=== PATIENT | female | born 1935 | race Caucasian/White ===

== ENCOUNTER 2016-07-02 16:23 | Inpatient (IN) | payer OTHER ==
[2016-07-02] MEDS ORDERED: PHENERGAN PO PRN (17:05)
[2016-07-02] MEDS ORDERED: SALINE LOCK IV FLUID XX ONE (17:06)
[2016-07-02] MEDS ORDERED: LEVAQUIN 500 MG/D5W 100 ML IV SCH (17:15)
[2016-07-02 18:09] LABS: MANUAL DIFF NEEDED? NO
[2016-07-02 18:15] LABS: BASO% 0.2 % (0.0-0.8); EOS% 2.3 % (0.0-10.0); HEMATOCRIT 40.8 % (37.0-47.0); HEMOGLOBIN 13.1 g/dL (12.0-16.0); IMM GRAN# 0.04 X1000 (0.0-0.04); IMM GRAN% 0.5 % (0.0-0.5); LYMPH# 2.56 X1000 (1.2-3.4); LYMPH% 29.6 % (20.5-51.1); MCH 28.7 PG (27-31); MCHC 32.1 g/dL (33-37); MCV 89.5 FL (81-99); MONO# 1.03 X1000 (0.11-0.59); MONO% 11.9 % (1.7-9.3); MPV 10.1 FL (7.4-10.4); NEUT% 55.5 % (42.2-75.2); PLT 245 X1000 (130-400); RBC 4.56 XMIL (4.2-5.4)
[2016-07-02 18:38] LABS: AGAP 13; ALBUMIN 3.9 g/dL (3.5-5.0); ALKALINE PHOSPHATASE 85 U/L (32-104); BUN 17 mg/dL (8-22); CALCIUM 9.4 mg/dL (8.8-10.2); CHLORIDE 96 mmol/L (98-107); COSMO 285; GOT 12 U/L (10-30); GPT 11 U/L (10-36); SODIUM 142 mmol/L (136-145); TCO2 33 mmol/L (25-35); TOTAL BILIRUBIN 0.28 mg/dL (0.20-1.00); TOTAL PROTEIN 7.2 g/dL (6.3-8.3)
[2016-07-02] MEDS ORDERED: NORCO-10 PO PRN (18:56)
[2016-07-02] MEDS ORDERED: TYLENOL PO PRN (18:56)
[2016-07-02] MEDS ORDERED: CATAPRES PO PRN (18:56)
--- NOTE | 2016-07-02 20:35 | HISTORY AND PHYSICAL ---
HISTORY OF PRESENT ILLNESS: Ms. Mattson is a 80-year-old white female who was admitted with severe shortness of breath with acute exacerbation of COPD and possible pneumonia. Ms. Mattson has severe COPD. She was treated as an outpatient with antibiotics and respiratory therapy without much help. Hence she is admitted to the hospital. She has a known case of COPD for a long time and has been a chronic heavy smoker. She also has severe degenerative disk disease in the lumbar spine. PAST SURGICAL HISTORY: Reveals a history of 2 thyroid surgeries, hysterectomy and 1 back surgery performed on her. As mentioned, she is a heavy smoker and does not drink. ALLERGIES: Methadone, morphine and penicillin. MEDICATIONS: Home medicines involve polyethylene glycol, omeprazole 20 mg daily. She uses a nicotine patch 21 mg daily, metronidazole or Flagyl 500 mg t.i.d., metoprolol for hypertension 100 mg on a daily basis, meloxicam 15 mg daily, was taking levofloxacin p.o. daily without much help. DuoNeb inhaler 3-4 times a day, hydrocodone [place] 10 q.i.d. p.r.n. , Robitussin 100 DM, 10 mg of Lexapro daily, clonidine 0.1 mg t.i.d., amlodipine 10 mg daily, alprazolam 0.5 mg 4 times a day. Tylenol 325 mg q.8 hours. REVIEW OF SYSTEMS: Other than shortness of breath, cough with expectoration and severe back pain it is noncontributory at the present time. PHYSICAL EXAMINATION: VITAL SIGNS: Temperature normal, pulse 88 per minute, slightly irregular, respiratory rate 20 per minute, blood pressure 150/90. HEENT: Head normocephalic. Pupils PERRLA. Fundus examination normal. ENT examination unremarkable. NECK: Supple. JVP normal. There is no evidence of lymphadenopathy, thyroid enlargement. EXTREMITIES: Pedal edema, calf tenderness, anemia, cyanosis or clubbing. Pedal pulses well felt. BREAST EXAMINATION: Not done. CHEST: Normal. LUNGS: Reveal bilateral expiratory wheezing with occasional basal rales. PMI in the normal position. HEART: Sounds normal. No murmur, gallop or rub noted. ABDOMEN: Nondistended. Hernial orifices normal. No guarding, rigidity, free fluid, masses, or organomegaly. Bowel sounds normal. There is some tenderness in the lower abdomen. FINANCIAL AUDITOR: Higher functions normal. Cranial nerves normal. Motor and sensory system examination unremarkable. Deep tendon reflexes are sluggish. Plantars downgoing. Skull and spine examination reveals painful movements of the lumbosacral spine. SLR positive at about 30 degrees. There are no cerebellar signs or signs of meningeal irritation. LOCOMOTOR EXAMINATION: Unremarkable. SKIN EXAMINATION: Unremarkable. CLINICAL IMPRESSION: Acute exacerbation of chronic obstructive pulmonary disease. PLAN: Start IV Solu-Medrol and IV Rocephin 1 g IV daily.
[2016-07-02] MEDS ORDERED: XANAX PO SCH (21:00)
[2016-07-02] MEDS: NORCO-10 PO PRN (21:11)
[2016-07-02] MEDS: ROBAXIN PO SCH (21:23)
[2016-07-02] MEDS: NICODERM PATCH TD SCH (21:23)
[2016-07-02] MEDS: MUCINEX DM PO SCH (21:24)
[2016-07-02] MEDS: LEVAQUIN PO SCH (21:24)
[2016-07-02] MEDS: XANAX PO PRN (21:26)
[2016-07-02] MEDS: DUONEB (A & A) INH SCH (22:52)
[2016-07-03] MEDS: SOLU-MEDROL IV SCH ×5 (01:18→17:28)
[2016-07-03] MEDS: NORCO-10 PO PRN ×3 (01:24→20:57)
[2016-07-03] MEDS: DUONEB (A & A) INH SCH ×4 (03:19→20:20)
[2016-07-03] MEDS: PRILOSEC PO SCH ×2 (04:22→06:14)
[2016-07-03] MEDS: XANAX PO PRN ×2 (04:22→10:04)
[2016-07-03] MEDS: ROCEPHIN 1 GM/NS 50 ML IV SCH (05:02)
--- NOTE | 2016-07-03 05:16 | EKG Report ---
Test Performed on : 07/02/2016 6:09:33 PM Test Reason : PNA Blood Pressure : / mmHG Vent. Rate : 065 BPM Atrial Rate : 065 BPM P-R Int : 156 ms QRS Dur : 146 ms QT Int : 454 ms P-R-T Axes : 071 084 047 degrees QTc Int : 472 ms Normal sinus rhythm. Right bundle branch block Abnormal ECG When compared with ECG of 16-FEB-2016 13:59, premature supraventricular complexes. are no longer present Confirmed by Da ARGUETA, Bennett Eller ([id number]) on 07/03/2016 9:31:19 AM
--- NOTE | 2016-07-03 07:35 | Diag Imaging Result Document ---
PROCEDURE NAME: CHEST-2 VIEWS - 07/02/2016 CHEST X-RAY, 2 VIEWS: COMPARISON: 03/27/2016. FINDINGS: Stable COPD. There is improvement in the linear atelectasis at the right lung base. No new or focal infiltrates. Heart size remains slightly enlarged. Stable small compression fracture in the midthoracic spine. IMPRESSION: COPD. Mild cardiomegaly. Improvement in right basilar atelectasis.
--- NOTE | 2016-07-03 09:06 | PROGRESS NOTE ---
DATE: 07/03/2016 Ms. Mattson is complaining about severe headache and generalized body aches. She is still short of breath. She continues to have some wheezing. She is kind of indicating about not being able to handle herself at home and may think about going to halfway. We will continue with the current management at the present time.
[2016-07-03] MEDS: MUCINEX DM PO SCH ×2 (09:39→20:51)
[2016-07-03] MEDS: LEXAPRO PO SCH (09:39)
[2016-07-03] MEDS: NORVASC PO SCH (09:39)
[2016-07-03] MEDS: LOPRESSOR PO SCH (09:39)
[2016-07-03] MEDS: MOBIC PO SCH (09:39)
[2016-07-03] MEDS: ROBAXIN PO SCH ×2 (09:40→20:49)
[2016-07-03] MEDS: MIRALAX PO SCH (09:56)
[2016-07-03] MEDS: ROBITUSSIN-DM PO SCH ×5 (10:02→20:48)
[2016-07-03] MEDS: XANAX PO SCH ×5 (10:07→20:51)
[2016-07-03] MEDS: NICODERM PATCH TD SCH (20:49)
[2016-07-03] MEDS: LEVAQUIN PO SCH (20:51)
[2016-07-03] MEDS ORDERED: EYE-STREAM SOLUTION BOTH EYES ONE (23:13)
[2016-07-04] MEDS: SOLU-MEDROL IV SCH ×5 (00:20→22:09)
[2016-07-04] MEDS: ROBITUSSIN-DM PO SCH ×7 (00:46→22:08)
[2016-07-04] MEDS: DUONEB (A & A) INH SCH ×3 (03:33→09:48)
[2016-07-04] MEDS: ROCEPHIN 1 GM/NS 50 ML IV SCH (03:46)
[2016-07-04] MEDS: NORCO-10 PO PRN ×3 (03:51→22:16)
[2016-07-04] MEDS: PRILOSEC PO SCH ×2 (05:31→06:06)
[2016-07-04] MEDS: MIRALAX PO SCH (08:40)
[2016-07-04] MEDS: MUCINEX DM PO SCH ×2 (08:40→22:10)
[2016-07-04] MEDS: LEXAPRO PO SCH (08:41)
[2016-07-04] MEDS: ROBAXIN PO SCH ×2 (08:41→22:10)
[2016-07-04] MEDS: NORVASC PO SCH (08:41)
[2016-07-04] MEDS: XANAX PO SCH ×4 (08:41→22:11)
[2016-07-04] MEDS: LOPRESSOR PO SCH (08:41)
[2016-07-04] MEDS: MOBIC PO SCH (08:42)
--- NOTE | 2016-07-04 11:50 | PROGRESS NOTE ---
DATE: 07/04/2016 Ms. Mattson is recovering well from her bronchitis. She has less amount of wheezing. We will cut down on the Solu-Medrol today. She indicates to go to rehabilitation or correction. We will discharge her to [facility] when the arrangements are made. Until then, we will continue to treat her. Will reduce the Solu-Medrol today.
[2016-07-04] MEDS: TEARISOL OPH SOLUTION BOTH EYES PRN (17:30)
[2016-07-04] MEDS: LEVAQUIN PO SCH (22:11)
[2016-07-04] MEDS: NICODERM PATCH TD SCH (22:18)
[2016-07-05] MEDS: ROBITUSSIN-DM PO SCH ×6 (01:59→21:20)
[2016-07-05] MEDS: SOLU-MEDROL IV SCH ×3 (04:55→21:20)
[2016-07-05] MEDS: ROCEPHIN 1 GM/NS 50 ML IV SCH (04:56)
[2016-07-05] MEDS: PRILOSEC PO SCH (06:41)
[2016-07-05] MEDS: NORCO-10 PO PRN ×4 (06:41→21:20)
[2016-07-05] MEDS: DUONEB (A & A) INH PRN ×2 (09:13→19:29)
[2016-07-05] MEDS: LEXAPRO PO SCH (09:45)
[2016-07-05] MEDS: XANAX PO SCH ×4 (09:46→21:20)
[2016-07-05] MEDS: ROBAXIN PO SCH ×2 (09:46→21:20)
[2016-07-05] MEDS: LOPRESSOR PO SCH (09:46)
[2016-07-05] MEDS: MIRALAX PO SCH (09:47)
[2016-07-05] MEDS: NORVASC PO SCH (09:47)
[2016-07-05] MEDS: MOBIC PO SCH (09:47)
[2016-07-05] MEDS: MUCINEX DM PO SCH ×2 (09:47→21:20)
[2016-07-05] MEDS: TEARISOL OPH SOLUTION BOTH EYES PRN (10:12)
--- NOTE | 2016-07-05 12:13 | PROGRESS NOTE ---
DATE: 07/05/2016 80-year-old white female patient, known case of COPD, admitted with chest congestion, cough, increasing shortness of breath not responding to outpatient treatment. Admission history and physical noted. The patient still has some cough and chest congestion. Complaining of arthritic pain in the joint though pain medication is helping. Complaining of swelling of the feet and legs. No orthopnea or PND. No typical chest pain or palpitations. Denied any nausea or vomiting. PAST MEDICAL HISTORY: Significant for COPD, osteoarthritis, hypertension, anxiety and depression, gastritis and reflux disease, chronic constipation. OBJECTIVE: Her vital signs noted. Blood pressure minimally elevated.Neck: Supple. No JVD. Lungs: Bilateral good air entry present. Bilateral expiratory wheezing. CVS: S1 and S2 heard. Abdomen: Soft, globular. Bowel sounds present. Extremities: No cyanosis, clubbing. Minimal swelling of the feet. 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 Patient does have crepitation of both the knee joints. LAB DATA: Done on admission reviewed. CONSIDERATION: 1. Acute exacerbation of COPD, most likely due to bronchitis. Admission chest x-ray was negative for pneumonia. It did reveal mild cardiomegaly. 2. Other problems include hypertension, bilateral feet swelling could be due to COPD, medication use. 3. Osteoarthritis. Patient's labs and medication noted. We will continue current treatment and close observation. I am going to repeat blood work tomorrow. The patient is still wheezing. I am going to wait to decrease her Solu-Medrol. Overall plan discussed with the patient. Advised her to keep her leg elevated.
[2016-07-05] MEDS: NICODERM PATCH TD SCH (21:20)
[2016-07-05] MEDS: LEVAQUIN PO SCH (21:20)
[2016-07-06] MEDS: ROBITUSSIN-DM PO SCH ×6 (03:16→22:52)
[2016-07-06] MEDS: DUONEB (A & A) INH PRN ×3 (03:28→19:21)
[2016-07-06 05:06] LABS: ALLEN TEST YES; BE 8.2 mmoll (-3.0-3.0); BLOOD TYPE ARTERIAL; DRAW SITE R RADIAL; PO2(98.6) 70 mmHg (60-100); SAMPLE BLOOD; pH(98.6) 7.38 (7.35-7.45)
[2016-07-06 05:13] LABS: MODALITY CANNULA; PCO2(98.6) 60 mmHg (35-45)
[2016-07-06] MEDS: SOLU-MEDROL IV SCH ×2 (05:58→17:05)
[2016-07-06] MEDS: NORCO-10 PO PRN ×4 (05:58→22:50)
[2016-07-06] MEDS: ROCEPHIN 1 GM/NS 50 ML IV SCH (05:59)
[2016-07-06] MEDS: PRILOSEC PO SCH ×2 (05:59)
[2016-07-06] MEDS: XANAX PO SCH ×5 (05:59→22:51)
[2016-07-06 06:30] LABS: MANUAL DIFF NEEDED? NO
[2016-07-06 06:36] LABS: BASO% 0.1 % (0.0-0.8); EOS# 0.06 X1000 (0.0-0.7); EOS% 0.4 % (0.0-10.0); HEMATOCRIT 43.3 % (37.0-47.0); IMM GRAN# 0.13 X1000 (0.0-0.04); IMM GRAN% 0.9 % (0.0-0.5); LYMPH% 6.7 % (20.5-51.1); MCHC 32.3 g/dL (33-37); MCV 89.6 FL (81-99); MONO# 1.05 X1000 (0.11-0.59); MPV 10.9 FL (7.4-10.4); NEUT% 84.9 % (42.2-75.2); PLT 256 X1000 (130-400); RBC 4.83 XMIL (4.2-5.4)
[2016-07-06 07:16] LABS: AGAP 15; ALBUMIN 4.2 g/dL (3.5-5.0); ALKALINE PHOSPHATASE 86 U/L (32-104); BUN 23 mg/dL (8-22); CALCIUM 9.6 mg/dL (8.8-10.2); CHLORIDE 98 mmol/L (98-107); COSMO 289; GOT 12 U/L (10-30); GPT 12 U/L (10-36); POTASSIUM 4.1 mmol/L (3.5-5.1); SODIUM 142 mmol/L (136-145); TCO2 29 mmol/L (25-35); TOTAL PROTEIN 6.9 g/dL (6.3-8.3)
[2016-07-06 07:18] LABS: TOTAL BILIRUBIN 0.14 mg/dL (0.20-1.00)
[2016-07-06] MEDS: ROBAXIN PO SCH ×2 (08:26→22:51)
[2016-07-06] MEDS: MOBIC PO SCH (08:27)
[2016-07-06] MEDS: NORVASC PO SCH (08:27)
[2016-07-06] MEDS: LOPRESSOR PO SCH (08:27)
[2016-07-06] MEDS: MIRALAX PO SCH (08:27)
[2016-07-06] MEDS: MUCINEX DM PO SCH ×2 (08:27→22:52)
[2016-07-06] MEDS: LEXAPRO PO SCH (08:27)
--- NOTE | 2016-07-06 08:39 | Diag Imaging Result Document ---
PROCEDURE NAME: CHEST-2 VIEWS - 07/06/2016 FRONTAL AND LATERAL CHEST, TWO VIEWS: COMPARISON: Compared to 07/02/2016. FINDINGS: The lungs are well expanded except for basilar atelectasis. The heart is not enlarged. The vessels are not distended. No pleural effusions. No consolidation. IMPRESSION: Increased markings in the lung bases believed to be atelectasis.
[2016-07-06] MEDS ORDERED: LASIX IV ONE (09:16)
--- NOTE | 2016-07-06 09:50 | PROGRESS NOTE ---
DATE: 07/06/2016 SUBJECTIVE: Ms. Roth is doing fair. She was complaining of headache and low back pain. Mild cough. No expectoration. No high-grade fever or chills. The patient did have mild nausea. She received Phenergan which did help. Patient admitted with COPD exacerbation. OBJECTIVE: Vital signs: Noted. Neck: Supple. No JVD. Lungs: Bilateral good air entry present. Occasional wheezing. CVS S1 and S2 heard. Abdomen: Soft, globular. Bowel sounds present. Extremities: No cyanosis, clubbing, edema. SPINDLE FRAME CARVER: Alert, awake. Able to move all 4 limbs. LABORATORY: CBC did reveal leukocytosis most likely due to steroid. Blood gas, pH 7.38, pCO2 60, PO2 was 70. Electrolytes were fairly benign. Chest x-ray did reveal atelectasis. No pneumonia. ASSESSMENT: 1. Chronic obstructive pulmonary disease exacerbation. 2. Chronic low back pain. 3. Hypertension. 4. Muscle spasm. PLAN: I am going to decrease her Solu-Medrol. Patient is on pain medication for headache and back pain which will continue. Continue the rest of the treatment and close observation. Overall plan discussed with the patient and she is in agreement.
[2016-07-06] MEDS: LEVAQUIN PO SCH (22:50)
[2016-07-06] MEDS: NICODERM PATCH TD SCH (22:50)
[2016-07-07] MEDS: ROBITUSSIN-DM PO SCH ×6 (01:27→23:46)
[2016-07-07] MEDS: DUONEB (A & A) INH PRN ×4 (03:41→20:07)
[2016-07-07] MEDS: ROCEPHIN 1 GM/NS 50 ML IV SCH (04:45)
[2016-07-07] MEDS: NORCO-10 PO PRN ×2 (04:47→12:34)
[2016-07-07] MEDS: SOLU-MEDROL IV SCH ×4 (04:52→17:06)
--- NOTE | 2016-07-07 09:01 | PROGRESS NOTE ---
DATE: 07/07/2016 Ms. Mattson continues to have some extra wheezing. She had leukocytosis. White count was 14.9. Electrolytes normal. BUN 23. ABGs revealed pH of 7.38, pCO2 of 60 which is slightly elevated. She has some expiratory wheezing. She is not feeling good today. I am going to hold on the transfer to [facility] until tomorrow.
[2016-07-07] MEDS: MIRALAX PO SCH (09:23)
[2016-07-07] MEDS: LOPRESSOR PO SCH (09:24)
[2016-07-07] MEDS: ROBAXIN PO SCH ×2 (09:24→23:46)
[2016-07-07] MEDS: NORVASC PO SCH (09:24)
[2016-07-07] MEDS: XANAX PO SCH ×4 (09:24→23:47)
[2016-07-07] MEDS: LEXAPRO PO SCH (09:25)
[2016-07-07] MEDS: MOBIC PO SCH (09:25)
[2016-07-07] MEDS: MUCINEX DM PO SCH ×2 (09:25→23:47)
[2016-07-07] MEDS: PRILOSEC PO SCH (14:00)
[2016-07-07] MEDS: TEARISOL OPH SOLUTION BOTH EYES PRN (16:52)
[2016-07-07] MEDS: NICODERM PATCH TD SCH (23:47)
[2016-07-07] MEDS: LEVAQUIN PO SCH (23:47)
[2016-07-08] MEDS: NORCO-10 PO PRN ×2 (00:04→06:34)
[2016-07-08] MEDS: ROBITUSSIN-DM PO SCH ×3 (00:08→09:33)
[2016-07-08] MEDS: DUONEB (A & A) INH PRN ×2 (03:13→07:36)
[2016-07-08] MEDS: ROCEPHIN 1 GM/NS 50 ML IV SCH (04:03)
[2016-07-08] MEDS: PRILOSEC PO SCH (06:34)
[2016-07-08] MEDS: SOLU-MEDROL IV SCH (06:34)
[2016-07-08 08:16] VITALS: BP 151/77
--- NOTE | 2016-07-08 09:15 | PROGRESS NOTE ---
DATE: 07/08/2016 Ms. Mattson is feeling better. She had slight headache and the blood pressure is slightly elevated. Physical exam otherwise is unchanged. There is no wheezing now. I personally feel like [facility].
[2016-07-08] MEDS: MUCINEX DM PO SCH (09:27)
[2016-07-08] MEDS: ROBAXIN PO SCH (09:27)
[2016-07-08] MEDS: LEXAPRO PO SCH (09:27)
--- NOTE | 2016-07-08 09:27 | DISCHARGE SUMMARY ---
ADMISSION DATE: 07/02/2016 DISCHARGE DATE: 07/08/2016 IDENTIFICATION: Ms. Mattson is a 80-year-old white female, who was admitted with severe shortness of breath, acute exacerbation of COPD. IMAGING DATA: In the hospital, chest x-ray revealed mild cardiomegaly, COPD, improved right basilar atelectasis. Repeat chest x-ray was done on 07/06, which again revealed increased markings in the lung bases related to be atelectasis. LABORATORY DATA: CBC revealed white count 14.99. ABGs revealed pH 7.38, pCO2 60, PO2 was 70. Electrolytes are normal: BUN was 23, creatinine 0.5. COURSE IN THE HOSPITAL: She was given IV steroids, IV antibiotics, respiratory therapy. She continued to improve. She had 1 relapse about 3 days ago. She is feeling much better. She will be discharged today. She will be given prednisone 10 mg daily for about the next 5 days. She will be continued on her current medications. She is going to [facility].
[2016-07-08] MEDS: XANAX PO SCH (09:28)
[2016-07-08] MEDS: NORVASC PO SCH (09:28)
[2016-07-08] MEDS: LOPRESSOR PO SCH (09:28)
[2016-07-08] MEDS: MOBIC PO SCH (09:28)
[2016-07-08] MEDS: TEARISOL OPH SOLUTION BOTH EYES PRN (09:28)
[2016-07-08] MEDS: MIRALAX PO SCH (09:33)
== END 2016-07-08 12:48 | DRG 192 ==
LOC: 4N 18:39
PROVIDERS: ADMIT Internal Medicine; ATTEND Internal Medicine
DX: J44.1 Chronic obstructive pulmonary disease with (acute) exacerbation (principal); I10 Essential (primary) hypertension; F17.210 Nicotine dependence, cigarettes, uncomplicated; M51.36 Other intervertebral disc degeneration, lumbar region; R51 Headache; M19.90 Unspecified osteoarthritis, unspecified site; F41.9 Anxiety disorder, unspecified; F32.9 Major depressive disorder, single episode, unspecified; K29.70 Gastritis, unspecified, without bleeding; K21.9 Gastro-esophageal reflux disease without esophagitis; K59.09 Other constipation; R60.0 Localized edema; Z79.899 Other long term (current) drug therapy; Z79.1 Long term (current) use of non-steroidal anti-inflammatories (NSAID)
CPT/HCPCS: 71020; 80053; 82805; 83735; 85025; 93005; 93010; 94640; 94761; J0696; J1940; J2920; J2930

== ENCOUNTER 2016-10-23 14:42 | Inpatient (IN) ==
--- NOTE | 2016-10-23 16:11 | Diag Imaging Result Doc PS360 ---
EXAM: CHEST-2 VIEWS HISTORY: BRONCHITIS TECHNIQUE: PA and lateral chest COMMENT: There is COPD. There has been improvement in the atelectasis seen in the lung bases on 07/06/2016. What remains may be fibrotic. IMPRESSION: Improved bibasal or atelectasis. Possible fibrosis. Electronically signed by Remberto Mcintyre 10/23/2016 4:09 PM
[2016-10-23] MEDS: DUONEB (A & A) INH SCH (16:23)
[2016-10-23] MEDS: NORCO-10 PO PRN (17:05)
[2016-10-23] MEDS: SOLU-MEDROL IV SCH ×2 (17:06→23:58)
[2016-10-23] MEDS: ROCEPHIN 1 GM/NS 1 GM/50 ML IVPB IV SCH (17:06)
[2016-10-23 17:28] LABS: MANUAL DIFF NEEDED? NO
[2016-10-23 17:35] LABS: BASO% 0.2 % (0.0-0.8); EOS# 0.18 X1000 (0.0-0.7); EOS% 2.2 % (0.0-10.0); HEMATOCRIT 42.6 % (37.0-47.0); HEMOGLOBIN 13.9 g/dL (12.0-16.0); LYMPH# 3.35 X1000 (1.2-3.4); LYMPH% 40.8 % (20.5-51.1); MCH 28.5 PG (27-31); MCHC 32.6 g/dL (33-37); MCV 87.3 FL (81-99); MONO# 0.99 X1000 (0.11-0.59); MONO% 12.1 % (1.7-9.3); MPV 10.1 FL (7.4-10.4); NEUT% 44.7 % (42.2-75.2); PLT 213 X1000 (130-400); RBC 4.88 XMIL (4.2-5.4)
[2016-10-23 17:53] LABS: AGAP 10; ALBUMIN 4.1 g/dL (3.5-5.0); ALKALINE PHOSPHATASE 74 U/L (32-104); BUN 22 mg/dL (8-22); CALCIUM 9.2 mg/dL (8.8-10.2); CHLORIDE 96 mmol/L (98-107); COSMO 278; GOT 16 U/L (10-30); GPT 12 U/L (10-36); POTASSIUM 4.6 mmol/L (3.5-5.1); SODIUM 137 mmol/L (136-145); TCO2 31 mmol/L (25-35); TOTAL BILIRUBIN 0.34 mg/dL (0.20-1.00)
[2016-10-23] MEDS ORDERED: DUONEB (A & A) INH PRN (18:25)
[2016-10-23] MEDS ORDERED: CLARITIN-D 12 HR PO PRN (18:25)
[2016-10-23] MEDS ORDERED: PHENERGAN PO PRN (18:25)
[2016-10-23] MEDS: TYLENOL PO PRN (19:22)
[2016-10-23] MEDS: XANAX PO SCH (21:09)
[2016-10-23] MEDS: ROBAXIN PO SCH (21:09)
[2016-10-23] MEDS: EFFEXOR XR PO SCH (21:09)
[2016-10-23] MEDS: LOPRESSOR PO SCH (21:10)
[2016-10-23] MEDS: MUCINEX DM PO SCH (21:11)
[2016-10-24] MEDS: PRILOSEC PO SCH ×2 (05:13→09:36)
[2016-10-24] MEDS: NORCO-10 PO PRN ×3 (05:13→15:16)
--- NOTE | 2016-10-24 05:27 | EKG Report ---
Test Performed on : 10/23/2016 5:46:54 PM Test Reason : BRONCHITIS Blood Pressure : / mmHG Vent. Rate : 056 BPM Atrial Rate : 056 BPM P-R Int : 158 ms QRS Dur : 148 ms QT Int : 472 ms P-R-T Axes : 076 086 063 degrees QTc Int : 455 ms Sinus bradycardia. Right bundle branch block Abnormal ECG When compared with ECG of 02-JUL-2016 18:09, No significant change was found Confirmed by Shay ARGUETA, Adrian Ramírez ([id number]) on 10/24/2016 11:17:21 AM
[2016-10-24] MEDS: DUONEB (A & A) INH SCH ×5 (07:58→21:39)
[2016-10-24] MEDS: COMBIVENT RESPIMAT INHALER INH SCH ×4 (07:58→15:43)
[2016-10-24] MEDS: LOPRESSOR PO SCH ×2 (08:29→21:20)
[2016-10-24] MEDS: MUCINEX DM PO SCH ×2 (08:30→21:19)
[2016-10-24] MEDS: MOBIC PO SCH (08:30)
[2016-10-24] MEDS: EFFEXOR XR PO SCH ×2 (08:31→21:19)
[2016-10-24] MEDS: XANAX PO SCH ×4 (08:31→21:19)
[2016-10-24] MEDS: ROBAXIN PO SCH ×2 (08:32→21:19)
[2016-10-24] MEDS: NORVASC PO SCH (08:32)
[2016-10-24] MEDS: SOLU-MEDROL IV SCH ×2 (08:33→21:37)
[2016-10-24] MEDS: MIRALAX PO SCH (08:34)
[2016-10-24] MEDS: NICODERM PATCH TD SCH (08:34)
--- NOTE | 2016-10-24 12:12 | PROGRESS NOTE ---
DATE: 10/24/2016 Ms. Mattson continues to have some expiratory wheezing. She has COPD with exacerbation. Her Solu-Medrol will be decreased today from 80 to 40 mg IV q.8 hours. Overall condition is unchanged. We are going to start physical therapy on her also. cc: Edwin Naranjo MD
[2016-10-24] MEDS: TYLENOL PO PRN (13:24)
--- NOTE | 2016-10-24 14:00 | HISTORY AND PHYSICAL ---
HISTORY OF PRESENT ILLNESS: Ms. Mattson who is a 80-year-old white female, a known case of severe COPD, degenerative disk disease in the lumbar spine is admitted because of failure of outpatient therapy with antibiotics and breathing treatment. She has acute exacerbation of COPD. Ms. Mattson has a known case of COPD, she continues to smoke. She smokes about half pack of cigarettes per day. Sometimes goes to 1 pack. She lives with her daughter at the present time. She had back surgery and a vaginal hysterectomy. Besides this, she had one surgery on thyroid, a cyst was removed from the thyroid. MEDICATIONS: Lexapro 20 mg which is not helping; hence I am changing it to Effexor XR, MiraLAX, Phenergan, metoprolol, methocarbamol, meloxicam, DuoNeb, [place] 10, Robitussin DM. She also gets amlodipine and alprazolam. REVIEW OF SYSTEMS: Other than shortness of breath, cough with expectoration, is noncontributory. She denies having any chest pain or hemoptysis. PHYSICAL EXAMINATION: VITAL SIGNS: Reveal temperature normal, pulse of 62 per minute, respiratory rate 18 per minute, blood pressure 166/76. HEENT: Head normocephalic. Pupils PERRLA. Fundus examination normal. NECK: Supple. JVP normal. ENT examination unremarkable. There is no evidence of lymphadenopathy, thyroid enlargement, pedal edema, calf tenderness, anemia, cyanosis or clubbing. Pedal pulses well felt. BREASTS: Exam normal. CHEST: Normal on inspection. LUNGS: Reveal bilateral expiratory wheezing with occasional basal rales. PMI in the normal position. HEART: Sounds normal. No murmur, gallop or rub noted. ABDOMEN: Nondistended. Hernial orifices normal. No guarding, rigidity, free fluid, masses, or organomegaly. Bowel sounds normal. RECTAL: Deferred. 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 Cranial nerves normal. Motor and sensory system examination unremarkable. Deep tendon reflexes are sluggish in the lower extremity. Plantars downgoing. Skull and spine examination reveals painful movements of the lumbosacral spine. SLR positive. No cerebellar signs or signs of meningeal irritation. LOCOMOTOR SYSTEM: Unremarkable. SKIN: Unremarkable. CLINICAL IMPRESSION: Acute exacerbation of COPD. Patient not responding to outpatient therapy. We will start IV steroids, IV antibiotics, respiratory therapy. cc: Edwin Naranjo MD
[2016-10-24] MEDS: ROCEPHIN 1 GM/NS 1 GM/50 ML IVPB IV SCH (21:37)
[2016-10-24] MEDS: XANAX PO PRN (21:47)
[2016-10-25] MEDS: SOLU-MEDROL IV SCH ×4 (00:05→17:08)
[2016-10-25] MEDS: NORCO-10 PO PRN ×3 (03:19→15:26)
[2016-10-25] MEDS: DUONEB (A & A) INH SCH ×4 (03:29→22:20)
[2016-10-25] MEDS: TYLENOL PO PRN ×2 (05:31→21:57)
[2016-10-25] MEDS: PRILOSEC PO SCH ×2 (05:51→06:01)
[2016-10-25] MEDS: COMBIVENT RESPIMAT INHALER INH SCH ×4 (07:41→21:31)
[2016-10-25] MEDS: ROBAXIN PO SCH ×2 (09:20→21:57)
[2016-10-25] MEDS: MIRALAX PO SCH (09:26)
[2016-10-25] MEDS: NICODERM PATCH TD SCH (09:26)
[2016-10-25] MEDS: EFFEXOR XR PO SCH ×2 (09:27→21:56)
[2016-10-25] MEDS: NORVASC PO SCH (09:28)
[2016-10-25] MEDS: XANAX PO SCH ×4 (09:28→21:57)
[2016-10-25] MEDS: LOPRESSOR PO SCH ×2 (09:28→21:56)
[2016-10-25] MEDS: MOBIC PO SCH (09:28)
[2016-10-25] MEDS: MUCINEX DM PO SCH ×2 (09:29→21:57)
[2016-10-25] MEDS ORDERED: BREO ELLIPTA 100/25 MCG INH INH ONE (10:00)
[2016-10-25 12:02] LABS: INR 0.95; PROTIME 9.9 Seconds (9.2-11.7)
--- NOTE | 2016-10-25 12:26 | PROGRESS NOTE ---
DATE: 10/25/2016 SUBJECTIVE: Level [address] Naranjo. In brief she is a 80-year-old white female, admitted to the hospital on 10/23/2016 for COPD exacerbation. She has a chronic pain due to disk disease of lumbar spine. PAST MEDICAL HISTORY: Reviewed. PAST SURGICAL HISTORY: Reviewed. MEDICATIONS: Were reviewed. REVIEW OF SYSTEMS: Complains of lower abdominal pain. No constipation. No dysuria. HEENT: No headache. No vision problem. No earache. No sore throat. Cardiopulmonary: Shortness of breath, wheezing no chest pain. No swelling of feet. Chronic back pain on medications. Neurologic: No focal symptoms. EXAMINATION: Vitals: Are stable. Afebrile. Pulse is 69, blood pressure is 160/73. Nasal cannula 96%. I's and O's positive 1250. HEENT: Atraumatic, normocephalic. Pupils equal, react to light. Tongue is in midline. Neck: Supple. No neck rigidity. Cardiopulmonary: Wheezing scattered. Distant heart sounds. Breasts: Deferred. Abdomen: Belly is soft. Midline abdominal scar present. Tender small incisional hernia present. No signs of peritonitis. Extremities: No peripheral edema. Left elbow small prominent olecranon with a fluid collection noted. INVESTIGATIONS: CBC, SMA 7 is normal. Chest x-ray on 10/23/2016 improved bibasilar atelectasis. Chronic obstructive pulmonary disease with fibrosis. ASSESSMENT AND PLAN: 1. Acute chronic obstructive pulmonary disease exacerbation. Continue bronchodilators, IV ceftriaxone 1 g keep 24 hours and methylprednisolone 40 IV q.8. Added on Breo and Spiriva. 2. Constipation, on MiraLAX. 3. Abdominal pain. Exam is benign. We will do the CBC, SMA 7, urinalysis. 4. Chronic pain on hydrocodone and Mobic and methocarbamol. Robaxin 750 b.i.d. 5. Hypertension, on metoprolol 100 p.o. b.i.d., amlodipine 10 daily. 6. Deep venous thrombosis prophylaxis with Lovenox. 7. We will follow up. cc: MD Edwin Church MD
[2016-10-25] MEDS: ROCEPHIN 1 GM/NS 1 GM/50 ML IVPB IV SCH (17:08)
[2016-10-25 17:39] LABS: URINE MICRO REVIEW NEEDED? NO; URINE SOURCE VOIDED
[2016-10-25 17:44] LABS: BILIRUBIN URINE NEGATIVE (NEGATIVE); BLOOD URINE NEGATIVE (NEGATIVE); COLOR YELLOW; GLUCOSE URINE NEGATIVE (NEGATIVE); LEUKOCYTES URINE TRACE (NEGATIVE); NITRITE URINE NEGATIVE (NEGATIVE); PROTEIN URINE NEGATIVE (NEGATIVE); SP GRAVITY URINE 1.018; TURBIDITY URINE CLEAR (CLEAR); UROBILINOGEN URINE NORMAL (NORMAL)
[2016-10-25 17:45] LABS: UR EPITHELIAL CELLS <10 /HPF (<10); URINE BACTERIA NEGATIVE /HPF; URINE RBC <10 /HPF (<10)
[2016-10-26] MEDS: SOLU-MEDROL IV SCH ×4 (00:14→23:48)
[2016-10-26] MEDS: COMBIVENT RESPIMAT INHALER INH SCH ×3 (03:32→21:09)
[2016-10-26] MEDS: DUONEB (A & A) INH SCH ×4 (03:33→21:39)
[2016-10-26] MEDS: NORCO-10 PO PRN ×3 (03:55→18:55)
[2016-10-26 04:54] LABS: ALLEN TEST YES; BE 5.2 mmoll (-3.0-3.0); BLOOD TYPE ARTERIAL; DRAW SITE R RADIAL; METHB 1.1 % (0.0-1.5); PCO2(98.6) 49 mmHg (35-45); PO2(98.6) 64 mmHg (60-100); SAMPLE BLOOD; SAO2 94.8 % (95.0-100.0); THB 15.4 g/dL (11.5-17.4); pH(98.6) 7.41 (7.35-7.45)
[2016-10-26 04:55] LABS: MODALITY CANNULA
[2016-10-26 06:12] LABS: BASO% 0.1 % (0.0-0.8); HEMATOCRIT 45.8 % (37.0-47.0); HEMOGLOBIN 15.1 g/dL (12.0-16.0); IMM GRAN# 0.03 X1000 (0.0-0.04); IMM GRAN% 0.3 % (0.0-0.5); LYMPH# 1.32 X1000 (1.2-3.4); LYMPH% 11.3 % (20.5-51.1); MANUAL DIFF NEEDED? YES; MCH 28.4 PG (27-31); MCV 86.1 FL (81-99); MONO% 2.6 % (1.7-9.3); MPV 10.3 FL (7.4-10.4); NEUT% 85.7 % (42.2-75.2); PLT 238 X1000 (130-400); RBC 5.32 XMIL (4.2-5.4)
[2016-10-26 06:20] LABS: AGAP 9; BUN 23 mg/dL (8-22); CALCIUM 9.6 mg/dL (8.8-10.2); CHLORIDE 98 mmol/L (98-107); COSMO 279; POTASSIUM 4.7 mmol/L (3.5-5.1); SODIUM 136 mmol/L (136-145); TCO2 29 mmol/L (25-35)
[2016-10-26] MEDS: PRILOSEC PO SCH (06:20)
[2016-10-26] MEDS: TYLENOL PO PRN ×2 (06:34→23:53)
[2016-10-26 06:49] LABS: LYMPHS 19 % (21-51); MONO 5 % (1-9)
[2016-10-26] MEDS: MIRALAX PO SCH (08:26)
[2016-10-26] MEDS: MOBIC PO SCH (08:28)
[2016-10-26] MEDS: LOVENOX SUBQ SCH (08:28)
[2016-10-26] MEDS: LOPRESSOR PO SCH ×2 (08:28→20:45)
[2016-10-26] MEDS: EFFEXOR XR PO SCH ×2 (08:28→20:49)
[2016-10-26] MEDS: XANAX PO SCH ×4 (08:28→20:49)
[2016-10-26] MEDS: NICODERM PATCH TD SCH (08:29)
[2016-10-26] MEDS: ROBAXIN PO SCH ×2 (08:29→20:45)
[2016-10-26] MEDS: NORVASC PO SCH (08:29)
[2016-10-26] MEDS: MUCINEX DM PO SCH ×2 (08:29→20:45)
[2016-10-26] MEDS: BREO ELLIPTA 100/25 MCG INH INH SCH (09:05)
[2016-10-26] MEDS: SPIRIVA INH SCH (09:35)
--- NOTE | 2016-10-26 10:51 | PROGRESS NOTE ---
DATE: 10/26/2016 SUBJECTIVE: 1. Complains of headache and no focal symptoms. 2. Breathing is improved. 3. Lower abdominal pain. REVIEW OF SYSTEMS: None reported. PHYSICAL EXAMINATION: Vital Signs: Temperature is 98, pulse is 64, respirations 18, blood pressure is 170/84, on nasal cannula at 95%. HEENT Examination: Within normal limits. Neck: Supple. Cardiopulmonary: No wheezing. Heart: Heart sounds are regular. Abdomen: Belly is soft, nontender. No signs of peritonitis. Neurologic: No obvious neurological deficits noted. INVESTIGATIONS: White cell count 11, hematocrit 45, platelets 238,000. ABG: PH is 7.41, pCO2 49, PO2 64 on 28% FiO2. SMA 7: Sodium 136, potassium 4.7, chloride 98, BUN 23, creatinine 0.6, glucose 155. Urinalysis is clear. Urine cultures are pending. ASSESSMENT AND PLAN: 1. Acute chronic obstructive pulmonary disease exacerbation is improved after adding Spiriva and Breo. Continue present medical therapy with intravenous steroids and intravenous ceftriaxone. 2. Headache, on Tylenol as needed. 3. Hypertension, on Lopressor 100 mg p.o. b.i.d., amlodipine 10 mg daily. Consider lowering the dose of metoprolol in light of chronic obstructive pulmonary disease down the line. 4. Deep venous thrombosis prophylaxis with Lovenox. 5. Chronic pain, as per Dr. Naranjo with hydrocodone and Mobic. 6. Poor IV access. Consider PICC consult. LEVEL OF DOCUMENTATION: 25 minutes. cc: MD Edwin Church MD
[2016-10-26] MEDS: ROCEPHIN 1 GM/NS 1 GM/50 ML IVPB IV SCH (16:54)
[2016-10-27] MEDS: COMBIVENT RESPIMAT INHALER INH SCH ×3 (03:12→15:37)
[2016-10-27] MEDS: DUONEB (A & A) INH SCH ×4 (03:13→21:56)
[2016-10-27] MEDS: NORCO-10 PO PRN ×3 (03:26→18:28)
[2016-10-27] MEDS: CATAPRES PO PRN (04:15)
[2016-10-27] MEDS: PRILOSEC PO SCH ×2 (05:53→06:48)
[2016-10-27] MEDS: TYLENOL PO PRN ×2 (06:30→22:03)
[2016-10-27] MEDS: EFFEXOR XR PO SCH ×2 (08:14→22:04)
[2016-10-27] MEDS: NORVASC PO SCH (08:14)
[2016-10-27] MEDS: MOBIC PO SCH (08:14)
[2016-10-27] MEDS: LOPRESSOR PO SCH ×2 (08:14→22:03)
[2016-10-27] MEDS: ROBAXIN PO SCH ×2 (08:15→22:03)
[2016-10-27] MEDS: MUCINEX DM PO SCH ×2 (08:16→22:04)
[2016-10-27] MEDS: SOLU-MEDROL IV SCH ×2 (08:16→16:27)
[2016-10-27] MEDS: MIRALAX PO SCH (08:16)
[2016-10-27] MEDS: NICODERM PATCH TD SCH (08:16)
[2016-10-27] MEDS: LOVENOX SUBQ SCH (08:16)
[2016-10-27] MEDS: XANAX PO SCH ×4 (08:34→22:09)
[2016-10-27] MEDS: SPIRIVA INH SCH (09:35)
[2016-10-27] MEDS: BREO ELLIPTA 100/25 MCG INH INH SCH (09:36)
--- NOTE | 2016-10-27 15:59 | PROGRESS NOTE ---
DATE: 10/27/2016 SUBJECTIVE: Patient is doing very well. Complains of headache, dizziness improved, abdominal symptoms improved. Able to get an IV access on the left side of the arm. We will hold on the PICC line. REVIEW OF SYSTEMS: None reported, other than headache. EXAMINATION: Vital signs: Afebrile, pulse is 60, blood pressure is 150/66, nasal cannula 96%. Input and output: 1100 mL positive. HEENT: Within normal limits. Neck: Supple. No lymphadenopathy. Chest: Decreased wheezing. Heart: Sounds are regular. Abdomen: Belly is soft, nontender. Good bowel sounds. Extremities: Peripheral edema or cyanosis. Neurologic: No obvious neurological deficits. INVESTIGATIONS: Urinalysis: Mixed marbella. ASSESSMENT AND PLAN: 1. Acute COPD exacerbation. Improving after adding the Breo and Spiriva. Continue bronchodilators and IV steroids and IV ceftriaxone. 2. Deep vein thrombosis prophylaxis with Lovenox. Gastrointestinal prophylaxis with Pepcid. 3. Chronic pain on Robaxin, hydrocodone. 4. Hypertension, on Norvasc 10 mg daily, metoprolol 100 p.o. b.i.d. 5. Constipation, on MiraLAX because of ongoing pain medications. 6. Anxiety/depression, on Effexor 75 p.o. b.i.d. and Xanax 0.5 four times daily. 7. Headache, etiology to be determined. LEVEL OF DOCUMENTATION: 25 minutes. cc: MD Edwin Church MD
[2016-10-27] MEDS: ROCEPHIN 1 GM/NS 1 GM/50 ML IVPB IV SCH (16:27)
[2016-10-27] MEDS: XANAX PO PRN (18:29)
[2016-10-28] MEDS: XANAX PO PRN (02:49)
[2016-10-28] MEDS: SOLU-MEDROL IV SCH ×2 (02:49→16:09)
[2016-10-28] MEDS: DUONEB (A & A) INH SCH ×4 (03:44→22:50)
[2016-10-28] MEDS: PRILOSEC PO SCH (06:12)
[2016-10-28] MEDS: NORCO-10 PO PRN ×3 (06:13→18:45)
[2016-10-28] MEDS: ROBAXIN PO SCH ×2 (08:08→22:38)
[2016-10-28] MEDS: NORVASC PO SCH (08:09)
[2016-10-28] MEDS: EFFEXOR XR PO SCH ×2 (08:09→22:38)
[2016-10-28] MEDS: LOPRESSOR PO SCH ×2 (08:09→22:38)
[2016-10-28] MEDS: TYLENOL PO PRN ×2 (08:09→22:37)
[2016-10-28] MEDS: MOBIC PO SCH (08:10)
[2016-10-28] MEDS: XANAX PO SCH ×4 (08:10→22:37)
[2016-10-28] MEDS: NICODERM PATCH TD SCH (08:10)
[2016-10-28] MEDS: MIRALAX PO SCH (08:11)
[2016-10-28] MEDS: MUCINEX DM PO SCH ×2 (08:11→22:37)
[2016-10-28] MEDS: LOVENOX SUBQ SCH (08:11)
[2016-10-28] MEDS: BREO ELLIPTA 100/25 MCG INH INH SCH (09:31)
[2016-10-28] MEDS: SPIRIVA INH SCH (09:31)
--- NOTE | 2016-10-28 10:48 | PROGRESS NOTE ---
DATE: 10/28/2016 SUBJECTIVE: Ms. Ira Mattson is doing better, except that her blood pressure has gone up some. She is having some headache. Overall condition is unchanged. I am reducing her Solu-Medrol, which might help bring the blood pressure down also, and will continue with the current management. cc: Edwin Naranjo MD
[2016-10-28] MEDS: COMBIVENT RESPIMAT INHALER INH SCH ×2 (15:38→23:38)
[2016-10-28] MEDS: ROCEPHIN 1 GM/NS 1 GM/50 ML IVPB IV SCH (16:10)
[2016-10-29] MEDS: DUONEB (A & A) INH SCH ×4 (03:42→22:54)
[2016-10-29] MEDS: COMBIVENT RESPIMAT INHALER INH SCH ×4 (03:42→22:53)
[2016-10-29] MEDS: SOLU-MEDROL IV SCH (04:28)
[2016-10-29] MEDS: NORCO-10 PO PRN ×3 (04:28→23:05)
[2016-10-29] MEDS: PRILOSEC PO SCH (06:08)
[2016-10-29] MEDS: XANAX PO SCH ×4 (08:03→21:37)
[2016-10-29] MEDS: ROBAXIN PO SCH ×2 (08:03→21:37)
[2016-10-29] MEDS: EFFEXOR XR PO SCH ×2 (08:03→21:38)
[2016-10-29] MEDS: MUCINEX DM PO SCH ×2 (08:03→21:37)
[2016-10-29] MEDS: NORVASC PO SCH (08:05)
[2016-10-29] MEDS: NICODERM PATCH TD SCH (08:05)
[2016-10-29] MEDS: LOPRESSOR PO SCH ×2 (08:05→23:11)
[2016-10-29] MEDS: LOVENOX SUBQ SCH (08:05)
[2016-10-29] MEDS: MOBIC PO SCH (08:05)
[2016-10-29] MEDS: TYLENOL PO PRN ×2 (08:05→18:14)
[2016-10-29] MEDS: MIRALAX PO SCH (08:10)
--- NOTE | 2016-10-29 09:20 | PROGRESS NOTE ---
DATE: 10/29/2016 SUBJECTIVE: Ms. Mattson is still not feeling well. Her blood pressure went up to 203 last night and is still high this morning. We are going to stop the steroids completely and add losartan SCT today to the current regimen of amlodipine, Lopressor and clonidine. cc: Edwin Naranjo MD
[2016-10-29] MEDS: BREO ELLIPTA 100/25 MCG INH INH SCH (09:45)
[2016-10-29] MEDS: SPIRIVA INH SCH (09:45)
[2016-10-29] MEDS: HYZAAR 100/12.5 MG TAB PO SCH (10:05)
[2016-10-29] MEDS: ROCEPHIN 1 GM/NS 1 GM/50 ML IVPB IV SCH (17:33)
[2016-10-30] MEDS: DUONEB (A & A) INH SCH ×2 (03:44→09:49)
[2016-10-30] MEDS: COMBIVENT RESPIMAT INHALER INH SCH ×2 (03:44→09:50)
[2016-10-30] MEDS: TYLENOL PO PRN ×2 (03:51→12:55)
[2016-10-30] MEDS: CATAPRES PO PRN (03:52)
[2016-10-30] MEDS: PRILOSEC PO SCH (06:10)
[2016-10-30 07:43] VITALS: BP 196/87
[2016-10-30] MEDS: NICODERM PATCH TD SCH (08:44)
[2016-10-30] MEDS: LOVENOX SUBQ SCH (08:44)
[2016-10-30] MEDS: MIRALAX PO SCH (08:46)
[2016-10-30] MEDS: ROBAXIN PO SCH (08:46)
[2016-10-30] MEDS: XANAX PO SCH (08:48)
[2016-10-30] MEDS: LOPRESSOR PO SCH (08:48)
[2016-10-30] MEDS: NORCO-10 PO PRN (08:48)
[2016-10-30] MEDS: EFFEXOR XR PO SCH (08:48)
[2016-10-30] MEDS: MUCINEX DM PO SCH (08:48)
[2016-10-30] MEDS: MOBIC PO SCH (08:48)
[2016-10-30] MEDS: NORVASC PO SCH (08:48)
[2016-10-30] MEDS: HYZAAR 100/12.5 MG TAB PO SCH (08:48)
--- NOTE | 2016-10-30 09:12 | PROGRESS NOTE ---
DATE: 10/30/2016 SUBJECTIVE: Ms. Mattson is feeling better except that her blood pressure is still high. She has some headache. PLAN: She is going to continue the same blood pressure medicine plus will use clonidine at bedtime. Will continue the current management and discharge her today. cc: Edwin Naranjo MD
[2016-10-30] MEDS: SPIRIVA INH SCH (09:49)
[2016-10-30] MEDS: BREO ELLIPTA 100/25 MCG INH INH SCH (09:49)
--- NOTE | 2016-10-30 13:47 | DISCHARGE SUMMARY ---
ADMISSION DATE: 10/23/2016 DISCHARGE DATE: 10/30/2016 Ms. Mattson who is a 80-year-old white female, was admitted with acute bronchitis. She has COPD. This was acute exacerbation. White count was 11.64. INR was 0.95. ABGs revealed pH 7.4, pCO2 49, PO2 64. Electrolytes are normal. BUN was 23, creatinine 0.6. Urinalysis revealed 10-20 WBCs. COURSE IN THE HOSPITAL: She was given IV antibiotics, respiratory therapy, Solu-Medrol. Since the blood pressure was staying up we stopped the Solu-Medrol. Blood pressure still could be elevated because of Effexor and we are going to change it back to Lexapro for depression. She is going to continue the same treatment. She is not going to need any more antibiotics or steroids at home. We will discharge her today. I will see her in the office in about 4-6 days. cc: Edwin Naranjo MD
== END 2016-10-30 13:05 | disposition home or self-care (01) ==
LOC: DIRADM 14:42 → 4N 15:22
PROVIDERS: ADMIT Internal Medicine; ATTEND Internal Medicine

== ENCOUNTER 2016-11-24 15:30 | Inpatient (IN) ==
[2016-11-24] MEDS ORDERED: DILAUDID IV PRN (17:25)
[2016-11-24] MEDS ORDERED: XANAX PO PRN (17:26)
[2016-11-24 17:50] LABS: MANUAL DIFF NEEDED? NO
[2016-11-24 17:57] LABS: BASO% 0.2 % (0.0-0.8); EOS# 0.21 X1000 (0.0-0.7); EOS% 2.5 % (0.0-10.0); HEMATOCRIT 41.4 % (37.0-47.0); HEMOGLOBIN 13.2 g/dL (12.0-16.0); IMM GRAN# 0.02 X1000 (0.0-0.04); IMM GRAN% 0.2 % (0.0-0.5); LYMPH# 2.66 X1000 (1.2-3.4); LYMPH% 31.8 % (20.5-51.1); MCH 27.8 PG (27-31); MCHC 31.9 g/dL (33-37); MCV 87.2 FL (81-99); MONO# 1.02 X1000 (0.11-0.59); MONO% 12.2 % (1.7-9.3); MPV 9.6 FL (7.4-10.4); NEUT% 53.1 % (42.2-75.2); PLT 265 X1000 (130-400); RBC 4.75 XMIL (4.2-5.4)
--- NOTE | 2016-11-24 18:01 | Diag Imaging Result Doc PS360 ---
CHEST-2 VIEWS - 11/24/2016 INDICATION: abd pain TECHNIQUE: COMPARISON: 10/23/2016 FINDINGS: Lungs are better expanded. There is decrease in the multifocal but mild linear atelectasis in the lung bases. No new or focal infiltrates. Heart size and pulmonary vascularity is normal. No effusions. IMPRESSION: Improvement in the microatelectasis in the lung bases. No new abnormality. Electronically signed by Everett Siegel 11/24/2016 5:59 PM
[2016-11-24 19:03] LABS: AGAP 11; ALBUMIN 3.8 g/dL (3.5-5.0); ALKALINE PHOSPHATASE 85 U/L (32-104); BUN 20 mg/dL (8-22); CALCIUM 9.2 mg/dL (8.8-10.2); CHLORIDE 99 mmol/L (98-107); COSMO 281; GOT 14 U/L (10-30); GPT 10 U/L (10-36); POTASSIUM 3.7 mmol/L (3.5-5.1); SODIUM 139 mmol/L (136-145); TCO2 29 mmol/L (25-35); TOTAL BILIRUBIN 0.13 mg/dL (0.20-1.00); TOTAL PROTEIN 6.8 g/dL (6.3-8.3)
[2016-11-24] MEDS: PROTONIX IV SCH (19:41)
[2016-11-24] MEDS: NORCO-10 PO PRN (19:41)
[2016-11-24] MEDS: SODIUM CHLORIDE 0.9% INJ SCH (19:42)
[2016-11-24] MEDS: LEVAQUIN 500 MG/D5W 500 MG/100 ML IVPB IV SCH (19:42)
[2016-11-24] MEDS: D5 1/2 NS + KCL 10 MEQ 1,000 ML IV SCH (20:07)
[2016-11-24] MEDS: BENTYL PO SCH (21:56)
[2016-11-24] MEDS: NICODERM PATCH TD SCH (22:01)
[2016-11-25] MEDS: NORCO-10 PO PRN ×2 (03:05→15:41)
--- NOTE | 2016-11-25 05:25 | EKG Report ---
Test Performed on : 11/24/2016 5:30:39 PM Test Reason : abd pain Blood Pressure : / mmHG Vent. Rate : 056 BPM Atrial Rate : 056 BPM P-R Int : 156 ms QRS Dur : 152 ms QT Int : 474 ms P-R-T Axes : 072 088 059 degrees QTc Int : 457 ms Sinus bradycardia. Right bundle branch block Abnormal ECG When compared with ECG of 23-OCT-2016 17:46, No significant change was found Confirmed by Azul Torres MD ([id number]) on 11/25/2016 6:04:00 AM
[2016-11-25] MEDS: DILAUDID IV PRN ×3 (05:26→22:06)
[2016-11-25] MEDS: D5 1/2 NS + KCL 10 MEQ 1,000 ML IV SCH ×2 (05:36→15:43)
[2016-11-25] MEDS ORDERED: CATAPRES PO PRN (08:58)
[2016-11-25] MEDS ORDERED: PHENERGAN PO PRN (08:58)
[2016-11-25] MEDS ORDERED: NORCO-10 PO PRN (08:58)
[2016-11-25] MEDS ORDERED: TYLENOL PO PRN (08:58)
[2016-11-25] MEDS ORDERED: COMBIVENT RESPIMAT INHALER INH SCH (09:00)
--- NOTE | 2016-11-25 09:23 | PROGRESS NOTE ---
DATE: 11/25/2016 Ms. Mattson is feeling somewhat better. She is still having a lot of abdominal pain. Stool is positive for occult blood. I am going to get a GI consult with Dr. Eckert. She has COPD and back pain. Overall condition is otherwise unchanged. cc: Edwin Naranjo MD
--- NOTE | 2016-11-25 09:33 | HISTORY AND PHYSICAL ---
HISTORY OF PRESENT ILLNESS: Ms. Mattson is a 80-year-old white female, a known case of COPD, severe degenerative disk disease in the lumbar spine. She is admitted with severe abdominal pain with diarrhea. She had seen some blood in the past. She has a known case of COPD, has been in a lot of stress about her stay at home. She has gone into a snf twice in the past. For the last 7 days she has been having intermittent diarrhea and has been having severe abdominal pain. Hence, we decided to admit her. She is on Mobic which she just stopped. She is also taking [place] 10, Xanax. She is on omeprazole, DuoNeb inhaler, escitalopram, clonidine, fluticasone, guaifenesin, Losartan for hypertension. PAST SURGICAL HISTORY: Reveals history of appendectomy, she had a hysterectomy, she had 1 back surgery, she had bilateral cataract surgeries, thyroid cyst removed. HABITS: She is a smoker and she says she is trying to quit. She does not drink. ALLERGIES: She is allergic to methadone, morphine and penicillin. REVIEW OF SYSTEMS: Other than abdominal pain and diarrhea, it is negative. She has not been vomiting, however she is nauseous. She had no hematemesis, but she has seen some blood in the stool. PHYSICAL EXAMINATION: VITAL SIGNS: Temperature normal, pulse 70 per minute, respiratory rate 18 per minute, blood pressure 161/89. HEENT: Head normocephalic. Pupils PERRLA. Fundus examination not done. NECK: Supple. JVP normal. ENT examination unremarkable. There is no evidence of lymphadenopathy, thyroid enlargement, pedal edema, calf tenderness, anemia, cyanosis or clubbing. Pedal pulses well felt. BREAST EXAM: Normal. CHEST: Normal inspection. LUNGS: Clear to auscultation with occasional wheezing. PMI in the normal position. HEART: Sounds normal. No murmur, gallop or rub noted. ABDOMEN: Nondistended. Diffusely tender. No definite guarding noted. No rigidity, free fluid, masses or organomegaly. Bowel sounds normal. RECTAL: Exam deferred at the present time. 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 Cranial nerves normal. Motor and sensory system examination unremarkable. Deep tendon reflexes normal. Plantars downgoing. SKULL AND SPINE EXAMINATION: Normal for age. No cerebellar signs or signs of meningeal irritation. LOCOMOTOR SYSTEM AND SKIN EXAM: Unremarkable, except for back pain. IMPRESSION: Gastrointestinal with severe abdominal pain. Possible rectal bleeding. We will get stool for occult blood and get intravenous Protonix started. cc: Edwin Naranjo MD
[2016-11-25] MEDS: MIRALAX PO SCH (10:06)
[2016-11-25] MEDS: NICODERM PATCH TD SCH (10:06)
[2016-11-25] MEDS: HYZAAR 100/12.5 MG TAB PO SCH (10:06)
[2016-11-25] MEDS: BENTYL PO SCH ×2 (10:06→22:06)
[2016-11-25] MEDS: LEXAPRO PO SCH (10:06)
[2016-11-25] MEDS: XANAX PO SCH ×4 (10:07→22:06)
[2016-11-25] MEDS: LOPRESSOR PO SCH ×2 (10:07→22:05)
[2016-11-25] MEDS: NORVASC PO SCH (10:07)
[2016-11-25] MEDS: MUCINEX DM PO SCH ×2 (10:08→22:06)
[2016-11-25] MEDS: DUONEB (A & A) INH PRN (11:12)
[2016-11-25] MEDS: DUONEB (A & A) INH SCH ×2 (15:13→21:30)
[2016-11-25] MEDS: SODIUM CHLORIDE 0.9% INJ SCH (18:21)
[2016-11-25] MEDS: LEVAQUIN 500 MG/D5W 500 MG/100 ML IVPB IV SCH (18:21)
[2016-11-25] MEDS: PROTONIX IV SCH (18:21)
[2016-11-26] MEDS: D5 1/2 NS + KCL 10 MEQ 1,000 ML IV SCH ×2 (00:38→15:02)
[2016-11-26] MEDS: DUONEB (A & A) INH SCH ×4 (03:18→21:12)
[2016-11-26] MEDS: DILAUDID IV PRN ×3 (05:34→18:59)
[2016-11-26] MEDS ORDERED: PRILOSEC PO SCH (07:00)
[2016-11-26] MEDS: SPIRIVA INH SCH (08:07)
[2016-11-26] MEDS: BREO ELLIPTA 100/25 MCG INH INH SCH (08:07)
[2016-11-26] MEDS: LOPRESSOR PO SCH ×2 (09:21→22:44)
[2016-11-26] MEDS: NORVASC PO SCH (09:21)
--- NOTE | 2016-11-26 09:33 | PROGRESS NOTE ---
DATE: 11/26/2016 Ms. Mattson is still having some abdominal pain. Her stools are positive for occult blood. Dr. Barrow has been consulted. He will probably see her and decide about endoscopic procedures. I have contacted social service for rehab placement, where which she can probably go tomorrow or Thursday morning. cc: Edwin Naranjo MD
[2016-11-26] MEDS ORDERED: DIPRIVAN 1% ONE (13:39)
[2016-11-26] MEDS ORDERED: XYLOCAINE-MPF 2% ONE (13:50)
[2016-11-26] MEDS: BENTYL PO SCH ×2 (14:42→22:44)
[2016-11-26] MEDS ORDERED: GOLYTELY PO ONE (15:00)
[2016-11-26] MEDS: NORCO-10 PO PRN (15:01)
[2016-11-26] MEDS: HYZAAR 100/12.5 MG TAB PO SCH (15:01)
[2016-11-26] MEDS: XANAX PO SCH ×4 (15:02→22:45)
[2016-11-26] MEDS: NICODERM PATCH TD SCH (15:03)
[2016-11-26] MEDS: MUCINEX DM PO SCH ×2 (15:06→22:44)
[2016-11-26] MEDS: MIRALAX PO SCH (15:06)
[2016-11-26] MEDS: LEXAPRO PO SCH (15:11)
[2016-11-26] MEDS: LEVAQUIN 500 MG/D5W 500 MG/100 ML IVPB IV SCH (18:48)
[2016-11-26] MEDS: PROTONIX IV SCH (18:49)
--- NOTE | 2016-11-26 21:48 | OPERATIVE NOTE ---
PROCEDURE DATE: 11/26/2016 REFERRING PHYSICIAN: Dr. Naranjo. PROCEDURE: Esophagogastroduodenoscopy with gastric biopsy. PREOPERATIVE DIAGNOSES: 1. Abdominal pain, generalized, happening for the last 1 week. 2. Reflux disease. 3. Nausea. 4. Positive Hemoccult. 5. Constipation. 6. Family history of colon cancer in 2 brothers. 7. No esophagogastroduodenoscopy or colonoscopy in the past. 8. Possible diverticulosis of colon. 9. Last CAT scan done in January 2016 showed diverticulosis and constipation. POSTOPERATIVE DIAGNOSES: 1. Normal esophagus, stomach and duodenum. 2. Z-line is at 40 cm. 3. Evidence of erosive gastritis in the body and antrum status post biopsy. 4. Normal fundus, cardia, and incisura. 5. Normal duodenal bulb and second portion of duodenum. ESTIMATED BLOOD LOSS: None. COMPLICATIONS: None. ANESTHESIA: Monitored anesthesia care by the anesthesiologist. SPECIMEN: Gastric body biopsy. PROCEDURE IN DETAIL: After informed consent, the patient explained the risks, benefits, indications, alternatives to the procedure, patient was prepared for EGD. The risks of infection, bleeding, pain, trauma to the surrounding structures, perforation, and were explained among others, and she acknowledged understanding and agreed to proceed with the procedure. The patient was brought to the OR. She was turned to the left lateral position. A bite block was placed in the patient's mouth. After adequate monitored anesthesia care, the upper scope was gently introduced and advanced all the way to the second portion of the duodenum. Esophagus normal in the entire length. Z-line was at 40 cm. The scope was advanced into the stomach with evidence of erythema, erosions to the body suggesting erosive gastritis, and this was biopsied to rule out H pylori. Retroflexion revealed normal fundus, cardia, and incisura, and there was no evidence of any pyloric stenosis. The scope was advanced to the duodenum which showed normal duodenal bulb and second portion of the duodenum. The scope was withdrawn into the stomach. The air was removed as the scope was withdrawn. The patient tolerated the procedure and currently monitored in the OR in stable condition. I discussed the findings with the patient waking up. RECOMMENDATIONS: 1. The patient will be on clear liquid diet today. We will give her a 1 gallon GoLYTELY today. We will schedule her for colonoscopy tomorrow morning under anesthesia. 2. We will keep her on Protonix once daily for the next 8 weeks for erosive gastritis and will wean it down to Zantac 150 mg p.o. b.i.d. 3. The patient is counseled to quit smoking, and the patient is to avoid any NSAIDs. The patient will follow gastroesophageal reflux life changes. 4. The patient has a strong family history of colon cancer in 2 brothers and she has constipation. We will schedule her for colonoscopy tomorrow as she has never had it done before. 5. The above findings were discussed with the patient. cc: MD Edwin Hernandes MD MTDD
[2016-11-26] MEDS: SODIUM CHLORIDE 0.9% INJ SCH (22:44)
[2016-11-27] MEDS: D5 1/2 NS + KCL 10 MEQ 1,000 ML IV SCH ×3 (03:06→23:44)
[2016-11-27] MEDS: DUONEB (A & A) INH SCH ×4 (03:24→21:00)
[2016-11-27] MEDS: DILAUDID IV PRN (04:12)
[2016-11-27] MEDS ORDERED: XYLOCAINE-MPF 2% ONE (07:42)
[2016-11-27] MEDS ORDERED: DIPRIVAN 1% ONE (07:42)
[2016-11-27] MEDS ORDERED: FENTANYL ONE (08:05)
[2016-11-27] MEDS: NORCO-10 PO PRN ×2 (09:01→21:20)
[2016-11-27] MEDS: HYZAAR 100/12.5 MG TAB PO SCH (09:12)
[2016-11-27] MEDS: BENTYL PO SCH ×2 (09:12→21:18)
[2016-11-27] MEDS: LEXAPRO PO SCH (09:12)
[2016-11-27] MEDS: LOPRESSOR PO SCH ×2 (09:12→21:18)
[2016-11-27] MEDS: NORVASC PO SCH (09:12)
[2016-11-27] MEDS: NICODERM PATCH TD SCH (09:13)
[2016-11-27] MEDS: MIRALAX PO SCH (09:14)
[2016-11-27] MEDS: MUCINEX DM PO SCH ×2 (09:14→21:18)
[2016-11-27] MEDS: XANAX PO SCH ×4 (09:18→21:18)
--- NOTE | 2016-11-27 09:24 | PROGRESS NOTE ---
DATE: 11/27/2016 SUBJECTIVE: Ms. Mattson had colonoscopy done this morning. She also had gastroscopy done yesterday which revealed the presence of some gastritis, without any ulceration or active bleeding. The colonoscopy has been performed. She is back. She says she is exhausted. She is short of breath. There is some expiratory wheezing. Abdomen is diffusely tender, probably from the procedure. We will continue to watch her closely today, and send her back to the [facility] tomorrow. cc: Edwin Naranjo MD
[2016-11-27] MEDS: DUONEB (A & A) INH PRN (10:01)
[2016-11-27] MEDS: BREO ELLIPTA 100/25 MCG INH INH SCH (10:01)
[2016-11-27] MEDS: SPIRIVA INH SCH (10:02)
--- NOTE | 2016-11-27 10:37 | OPERATIVE NOTE ---
PROCEDURE DATE: 11/27/2016 ATTENDING PHYSICIAN: Dr. Naranjo. TITLE OF OPERATION: Colonoscopy with colon polypectomy. PREOPERATIVE DIAGNOSES: 1. Constipation. 2. Abdominal pain. 3. Family history of colon cancer in two brothers. 4. Patient has never had a colonoscopy in the past. POSTOPERATIVE DIAGNOSES: 1. Diverticulitis, mild degree with mucosal erythema noted in the left colon. 2. Severe diverticulosis noted in the sigmoid and descending colon. 3. Internal hemorrhoids. 4. Two descending colon polyps measuring 5-10 mm, flat, status post cold biopsy polypectomy. 5. Transverse colon polyp measuring about 1 cm, status post cold biopsy polypectomy. 6. Some retained stool in the colon. ESTIMATED BLOOD LOSS: Minimal. COMPLICATIONS: None. ANESTHESIA: Monitored anesthesia care. SPECIMENS: 1. Transverse colon polyp. 2. Descending colon polyps x2. DESCRIPTION OF PROCEDURE: After informed consent, the patient explained the risks, benefits, indications, and alternatives to the procedure, the patient was prepared for a colonoscopy. The risks of infection, bleeding, pain, trauma to the surrounding structures, perforation, and were explained to the patient, among others. She acknowledged understanding and agreed to proceed. The patient was brought to the OR. She was turned to the left lateral position. A rectal exam was performed which showed normal tone. No masses were felt. The colonoscope was introduced and was traversed all the way to the cecum. The cecum was identified with landmarks and ileocecal valve. There was evidence of severe diverticulosis in the sigmoid and descending colon, making it harder for the scope to pass through the area. There was evidence of 1 polyp, flat, 1 cm, in the transverse colon. It was removed using cold biopsy polypectomy. There were 2 small polyps, measuring 5-10 mm, flat type, in the descending colon which were removed using cold biopsy polypectomy. There was evidence of retained stool in the colon. There was evidence of any active bleeding, fresh or old blood in the entire colon. Internal hemorrhoids were noted on retroflexion in the rectum. The air was aspirated and the scope withdrawn. The patient tolerated the procedure well and closely monitored in the OR in stable condition. I discussed the findings with the patient on waking up and all questions have been answered. RECOMMENDATION: 1. The patient will be on a diverticulosis diet. Avoid excessive corn, nuts, and seeds in diet. 2. The patient will be on a full liquid diet today, advanced as tolerated. 3. Start patient on Levaquin and Flagyl for 7 days. We will start the patient on Culturelle 1 capsule p.o. b.i.d. for 4 weeks. 4. Schedule the patient for repeat colonoscopy in 1-2 years to look for further polyps in the rectosigmoid and descending colon area as she has had some diverticulitis in the area. We will decide based on overall health at that time. The patient was counseled to quit smoking completely. 5. The patient will be on Metamucil 2 tablespoons at bedtime. The patient will be on MiraLAX 17 g p.o. b.i.d. 6. Further recommendations pending hospital course. cc: MD Edwin Hernandes MD MTDD
[2016-11-27] MEDS: FLAGYL 500 MG/NS 500 MG/100 ML IVPB IV SCH ×2 (14:47→19:26)
[2016-11-27] MEDS: LEVAQUIN 500 MG/D5W 500 MG/100 ML IVPB IV SCH (17:20)
[2016-11-27] MEDS: PROTONIX IV SCH (17:22)
[2016-11-27] MEDS: SODIUM CHLORIDE 0.9% INJ SCH (17:22)
[2016-11-27] MEDS: CULTURELLE PO SCH (21:18)
[2016-11-28] MEDS: FLAGYL 500 MG/NS 500 MG/100 ML IVPB IV SCH (01:35)
[2016-11-28] MEDS: D5 1/2 NS + KCL 10 MEQ 1,000 ML IV SCH (01:36)
[2016-11-28] MEDS: DUONEB (A & A) INH SCH ×2 (03:16→09:38)
[2016-11-28 08:34] VITALS: BP 173/71
[2016-11-28] MEDS: LOPRESSOR PO SCH (08:45)
[2016-11-28] MEDS: NORCO-10 PO PRN (08:45)
[2016-11-28] MEDS: CULTURELLE PO SCH (08:45)
[2016-11-28] MEDS: XANAX PO SCH (08:45)
[2016-11-28] MEDS: LEXAPRO PO SCH (08:45)
[2016-11-28] MEDS: BENTYL PO SCH (08:45)
[2016-11-28] MEDS: MIRALAX PO SCH (08:46)
[2016-11-28] MEDS: MUCINEX DM PO SCH (08:46)
[2016-11-28] MEDS: HYZAAR 100/12.5 MG TAB PO SCH (08:46)
[2016-11-28] MEDS: NORVASC PO SCH (08:46)
[2016-11-28] MEDS: NICODERM PATCH TD SCH (08:47)
[2016-11-28] MEDS: SPIRIVA INH SCH (09:38)
[2016-11-28] MEDS: BREO ELLIPTA 100/25 MCG INH INH SCH (09:38)
--- NOTE | 2016-11-28 13:20 | PROGRESS NOTE ---
DATE: 11/28/2016 Ms. Mattson is doing fairly well. She has diverticulosis and diverticulitis and polyps in the transverse and descending colon. She is feeling better today. We will discharge her to [facility]. cc: Edwin Naranjo MD
--- NOTE | 2016-11-28 21:55 | DISCHARGE SUMMARY ---
ADMISSION DATE: 11/24/2016 DISCHARGE DATE: 11/28/2016 HOSPITAL COURSE: Ms. Mattson is a 80-year-old, white female who was admitted with severe abdominal pain and diarrhea. Her stool was positive for occult blood. She continued to have abdominal pain. GI consultation was made with Dr. Gutierrez who did a EGD and colonoscopy. EGD revealed presence of gastritis and colonoscopy revealed presence of diverticulosis, diverticulitis and polyps. Chest x-ray showed the presence of mild emphysema. EKG revealed regular sinus rhythm. She was treated with IV Levaquin. As well she was given IV Protonix and respiratory therapy. Her condition improved. We are going to send her to [facility] today. FINAL DIAGNOSES: 1. Antral gastritis, acute diverticulitis, colonic polyps that were removed. Pathology results are pending. 2. 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 3. Chronic obstructive pulmonary disease. DISPOSITION: We will discharge her to [facility] today. cc: Edwin Naranjo MD
== END 2016-11-28 15:05 ==
LOC: DIRADM 15:30 → 3N 16:54
PROVIDERS: ADMIT Internal Medicine; ATTEND Internal Medicine